=== PATIENT | female | born 1975 | race Caucasian/White ===

== ENCOUNTER 2016-12-13 20:10 | Emergency (ER) | payer OTHER ==
[~2016-12-13] VITALS: Ht 162.6 cm; Wt 78.9 kg
[~2016-12-13 20:10] MED LIST: IBUPROFEN800 M1 PO; PERCOCET 5-3251 EACH PO
[2016-12-13 22:11] VITALS: BP 136/74
[2016-12-13] MEDS ORDERED: DOXYCYCLINE HY100 M4 PO (22:19)
[2016-12-13] MEDS ORDERED: PROVENTIL HFA6.7 GM INH (22:19)
[2016-12-13] MEDS ORDERED: MEDROL4 M2 PO (22:19)
--- NOTE | 2016-12-13 22:20 | ED INFLUENZA/URI COMPLAINT ---
History of Present Illness General Chief Complaint: Upper Respiratory Sx/Fever Stated Complaint: COUGHING, CHEST CONGESTION Source: patient Exam Limitations: no limitations Vital Signs & Intake/Output Vital Signs & Intake/Output Vital Signs Date Time Temp Pulse Resp B/P Pulse O2 O2 Flow FiO2 Ox Delivery Rate 12/13 2210 98.7 80 18 136/74 97 Room Air 12/13 2044 98.3 89 18 124/81 95 Room Air Allergies Coded Allergies: NO KNOWN ALLERGIES (05/02/16) Reconcile Medications Albuterol Sulfate (Proventil Hfa) 90 MCG HFA.AER.AD 2 PUF INH Q4 sob Codeine Phosphate/Guaifenesi (M-Clear Wc Liquid) 6.3 MG-100 MG/5 ML LIQUID 5- 10 ML PO Q6P PRN COUGH Doxycycline Hyclate 100 MG TABLET 1 TAB PO BID bronchitis Ibuprofen 800 MG TABLET 1 TAB PO Q8H PRN pain Methylprednisolone. (Medrol) 4 MG TAB.DS.PK 1 DP PO AD bronchitis 6 on day 1 then reduce by one tablet daily until gone Oxycodone HCl/Acetaminophen (Percocet 5-325 MG Tablet) 1 EACH TABLET 1-2 TAB PO Q6H PRN PAIN Triage Note: RECEIVED 41 YO FEMALE C/O PRODUCTIVE YELLOW COUGH, HACKING COUGH, WITH CHEST CONGESTION. PT REPORTS SOME DIFFICULTY BREATHING. CHEST PAIN ONLY WITH COUGHING. Triage Nurses Notes Reviewed? yes Onset: Abrupt Duration: day(s):, constant, continues in ED Timing: recent history Severity: moderate, severe No Modifying Factors: none : No Patient currently breastfeeds: No HPI: 41-year-old female comes into emergency room with complaints of cough and congestion this been going on for the past 3 days. Symptoms started on Monday. Patient reports his persisting cough. Today she was coughing up yellow mucous. Past History Travel History Traveled to [place] past 21 day No Medical History Any Pertinent Medical History? see below for history Neurological: NONE EENT: NONE Cardiovascular: NONE Respiratory: NONE Gastrointestinal: NONE Hepatic: NONE Renal: NONE Musculoskeletal: NONE Psychiatric: NONE Endocrine: GESTATIONAL DM Blood Disorders: NONE Cancer(s): NONE MANAGER GREEN/Reproductive: TUBAL LIGATION Tetanus Vaccine: Surgical History Surgical History: KNEE SURGERY, Psychosocial History What is your primary language Chadian Tobacco Use: Never used Family History Hx Contributory? No Review of Systems Review of Systems Constitutional: Reports: no symptoms. EENTM: Reports: see HPI. Respiratory: Reports: see HPI. Cardiovascular: Reports: no symptoms. GI: Reports: no symptoms. Genitourinary: Reports: no symptoms. Musculoskeletal: Reports: no symptoms. Skin: Reports: no symptoms. Neurological/Psychological: Reports: no symptoms. Hematologic/Endocrine: Reports: no symptoms. Immunologic/Allergic: Reports: no symptoms. All Other Systems: Reviewed and Negative Physical Exam Physical Exam General Appearance: well developed/nourished, alert Head: atraumatic, normal appearance Eyes: Bilateral: normal appearance, EOMI. Ears, Nose, Throat: normal ENT inspection, moist mucous membrane, hearing grossly normal Neck: normal inspection, full range of motion Respiratory: normal breath sounds, no respiratory distress Cardiovascular: regular rate/rhythm Gastrointestinal: soft Back: normal inspection Extremities: normal inspection, no edema Neurologic/Psych: awake, alert, oriented x 3, normal gait Skin: intact, normal color Core Measures Severe Sepsis Present: No Septic Shock Present: No Progress Differential Diagnosis: influenza, meningitis, neutropenia, otitis, pneumonia, pharyngitis, sinusitis, bronchitis Plan of Care: 12/13/2016 10:29:19 PM Patient clinically looks well. Nontoxic-appearing. Symptoms are most consistent with bronchitis. Patient covered with doxycycline. Treated symptomatically. Patient was told to fill the total dose back if not better in 3 days. Initial ED EKG: none Departure Departure Disposition: HOME OR SELF CARE Condition: Stable Clinical Impression Primary Impression: Bronchitis Referrals: JOELLEN MARTIN MD (PCP/Family) Additional Instructions: Take doxycycline Medrol Dosepak and albuterol as prescribed. Follow-up with your primary care doctor. Please go over all results of today's visit with your primary care doctor. Contact your primary care doctor to let them know you were here in the emergency room. There may be nonspecific findings which may not be related to your visit today here in the emergency room but may require further evaluation and chronic monitoring by your primary care doctor. If you had a laceration today the chance of foreign body always remains. You should follow-up with your primary care doctor for recheck in 3-5 days for a wound check. If you had an x-ray done there is a chance that a fracture could have been missed on initial read and you should follow-up with your primary care doctor for repeat x-rays if symptoms persist. If your blood pressure was elevated here in the emergency room please have rechecked by her primary care doctor within the next 48 hours by your primary care doctor. If you were prescribed a narcotic here in the emergency room or any type of controlled substances you're not allowed to drive while taking this medication or operate any type of heavy machinery. Narcotics can make you feel lightheaded dizziness nausea and can cause constipation. You may need to berry picker a stool softener. Thank you for choosing [facility] emergency room. Please return to the emergency room immediately if you have any other concerns worsening of symptoms. Departure Forms: Customer Survey General Discharge Information Prescriptions: Current Visit Scripts Doxycycline Hyclate 1 TAB PO BID #20 TAB Methylprednisolone. (Medrol) 1 DP PO AD #1 DP 6 on day 1 then reduce by one tablet daily until gone Albuterol Sulfate (Proventil Hfa) 2 PUF INH Q4 #1 INHAL Codeine Phosphate/Guaifenesi (M-Clear Wc Liquid) 5-10 ML PO Q6P PRN COUGH #150 ML
[2016-12-13] MEDS ORDERED: M-CLEAR WC LIQ473 M1 PO (22:26)
== END 2016-12-13 22:42 ==
LOC: ERH 20:10
DX: J40 Bronchitis, not specified as acute or chronic (principal)